=== PATIENT | female | born 1985 | race Caucasian/White ===

== ENCOUNTER 2021-04-20 15:11 | Emergency (ER) | payer MEDICAID ==
[2021-04-20] MEDS ORDERED: Sodium Chloride 0.9% 1,000 ML IV ONE (15:19)
[2021-04-20 15:40] LABS: AMPHETAMINES,URINE NEGATIVE (NEGATIVE); BARBITURATES,URINE NEGATIVE (NEGATIVE); BENZODIAZEPINE,URINE NEGATIVE (NEGATIVE); MDMA (ECSTASY), URINE NEGATIVE (NEGATIVE); METHADONE,URINE NEGATIVE (NEGATIVE); METHAMPHETAMINES,URINE NEGATIVE (NEGATIVE); OPIATES,URINE NEGATIVE (NEGATIVE); OXYCODONE,URINE NEGATIVE (NEGATIVE); PHENCYCLIDINE,URINE NEGATIVE (NEGATIVE); TCA,URINE NEGATIVE (NEGATIVE)
[2021-04-20 15:47] LABS: CHLORIDE,CL 103 mEq/L (98-106); SODIUM,NA 143 mEq/L (136-145)
[2021-04-20] MEDS ORDERED: Magnesium Sulfate/Water 2 GM in Premix Bag 1 BAG IV ONE (15:52)
[2021-04-20] MEDS ORDERED: Potassium Chloride 20 MEQ in Premix Bag 1 BAG IV ONE (15:52)
--- NOTE | 2021-04-20 16:38 | EDM.PDOC ---
ED HPI GENERAL MEDICAL PROBLEM - General Chief Complaint: General Stated Complaint: hands numb Time Seen by Provider: 04/20/21 15:41 Source of Information: Reports: Patient History Limitations: Reports: No Limitations - History of Present Illness INITIAL COMMENTS - FREE TEXT/NARRATIVE: Jeni is a 35 yo female who presents to the ED with concerns of her anxiety, palpitations in her chest, spasms in her hands. States she felt fine this morning and ended up having a rummage sale. States it wasn't till after the rummage sale when the symptoms started. States this has happened to her one other time and she had a lot potassium level. States she was unable to stop flexing her wrists but now is able to move them. Bilateral Hand Pain Score (Numeric/FACES): 5 - Related Data Allergies Allergy/AdvReac Type Severity Reaction Status Date / Time No Known Allergies Allergy Verified 04/20/21 15:14 Home Meds: Home Meds Cyclobenzaprine [Flexeril] 10 mg PO BID PRN 04/20/21 [History] Past Medical History Psychiatric History: Reports: Anxiety - Infectious Disease History Infectious Disease History: Reports: None Social & Family History - Tobacco Use Tobacco Use Status *Q: Current Every Day Tobacco User Years of Tobacco use: 10 Packs/Tins Daily: 0.5 - Caffeine Use Caffeine Use: Reports: Coffee, Soda - Recreational Drug Use Recreational Drug Use: No - Living Situation & Occupation Living situation: Reports: Single Occupation: Employed ED ROS GENERAL - Review of Systems Review Of Systems: See Below Constitutional: Reports: No Symptoms. Denies: Fever, Chills HEENT: Reports: No Symptoms Respiratory: Denies: Shortness of Breath Cardiovascular: Reports: Chest Pain. Denies: Lightheadedness GI/Abdominal: Reports: No Symptoms : Reports: No Symptoms Musculoskeletal: Reports: Muscle Stiffness Skin: Reports: No Symptoms Neurological: Reports: Numbness, Tingling. Denies: Dizziness, Headache, Seizure, Syncope Psychiatric: Reports: Anxiety ED EXAM, GENERAL - Physical Exam Exam: See Below Exam Limited By: No Limitations General Appearance: Alert, Anxious Eye Exam: Bilateral Eye: Normal Inspection Ears: Normal External Exam, Hearing Grossly Normal Nose: Normal Inspection, Normal Mucosa, No Blood Throat/Mouth: Normal Inspection, Normal Lips, Normal Voice, No Airway Compromise Head: Atraumatic, Normocephalic Neck: Normal Inspection, Supple Respiratory/Chest: No Respiratory Distress, Lungs Clear, Normal Breath Sounds, No Accessory Muscle Use Cardiovascular: Regular Rate, Rhythm, No Edema, No Murmur Extremities: Normal Inspection, No Pedal Edema, Normal Capillary Refill Neurological: Alert, Oriented, CN II-XII Intact, Normal Cognition, No Linda r/Sensory Deficits Psychiatric: Anxious Skin Exam: Warm, Dry, Intact, Normal Color, No Rash Course - Vital Signs Last Recorded V/S: Last Vital Signs Temp 98.6 F 04/20/21 18:22 Pulse 93 04/20/21 18:22 Resp 16 04/20/21 18:22 BP 108/59 L 04/20/21 18: Pulse Ox 98 04/20/21 18:22 - Orders/Labs/Meds Labs: Laboratory Tests 04/20/21 04/20/21 04/20/21 Range/Units 15:17 15:17 15:17 WBC 9.9 (4.0-11.0) 10^3/uL RBC 4.01 (4.00-5.50) x10^6/uL Hgb 12.9 (12.0-16.0) g/dL Hct 37.2 (37.0-47.0) % MCV 92.8 (83.0-97.0) fL MCH 32.2 H (27.0-32.0) pg MCHC 34.7 (32.0-36.0) g/dL RDW Coeff of [place] 11.9 (11.0-15.0) % Plt Count 314 (150-400) 10^3/uL Immature Gran % (Auto) 0.2 (0.0-4.9) % Neut % (Auto) 55.4 (41-71) % Lymph % (Auto) 32.8 (24-44) % [place] % (Auto) 9.9 (0-10) % Eos % (Auto) 1.0 (0-6) % Baso % (Auto) 0.7 (0-1) % Neut # (Auto) 5.46 (1.80-8.00) x10^3/uL Lymph # (Auto) 3.24 (0.60-5.00) 10^3/uL [place] # (Auto) 0.98 (0.00-1.50) 10^3/uL Eos # (Auto) 0.10 (0.00-1.50) 10^3/uL Baso # (Auto) 0.07 (0.00-0.50) 10^3/uL Immature Gran # (Auto) 0.02 (0.00-0.49) 10^3/uL Sodium (136-145) mEq/L Potassium (3.5-5.0) mEq/L Chloride (98-106) mEq/L Carbon Dioxide (21-32) mmol/L BUN (7-18) mg/dL Creatinine (0.6-1.0) mg/dL Est Cr Clr Drug Dosing mL/min Estimated GFR (MDRD) (>=60) mL/min Glucose (75-99) mg/dL Calcium (8.4-10.1) mg/dL Magnesium (1.8-2.4) mg/dL Total Bilirubin (0.0-1.0) mg/dL AST (15-37) U/L ALT (12-78) U/L Alkaline Phosphatase (46-116) U/L Creatine Kinase (21-215) U/L Total Protein (6.4-8.2) g/dL Albumin (3.4-5.0) g/dL Urine Color Yellow (YELLOW) Urine Appearance Clear (CLEAR) Urine pH 7.0 (4.5-8.0) Ur Specific [place] 1.025 H (1.003-1.020) Urine Protein Negative (NEGATIVE) mg/dL Urine Glucose (UA) Negative (NEGATIVE) mg/dL Urine Ketones Negative (NEGATIVE) mg/dL Urine Occult Blood Negative (NEGATIVE) Urine Nitrite Negative (NEGATIVE) Urine Bilirubin Negative (NEGATIVE) Urine Urobilinogen 0.2 (0.2-1.0) EU/dL Ur Leukocyte Esterase Trace H (NEGATIVE) Urine RBC Not seen (0-5) /HPF Urine WBC Not seen (0-5) /HPF Urine Opiates Screen Negative (NEGATIVE) Ur Oxycodone Screen Negative (NEGATIVE) Urine Methadone Screen Negative (NEGATIVE) Ur Barbiturates Screen Negative (NEGATIVE) U Tricyclic Antidepress Negative (NEGATIVE) Ur Phencyclidine Scrn Negative (NEGATIVE) Ur Amphetamine Screen Negative (NEGATIVE) U Methamphetamines Scrn Negative (NEGATIVE) Urine MDMA Screen Negative (NEGATIVE) U Benzodiazepines Scrn Negative (NEGATIVE) Urine Cocaine Screen Negative (NEGATIVE) U Marijuana (THC) Screen Negative (NEGATIVE) 04/20/21 Range/Units 15:17 WBC (4.0-11.0) 10^3/uL RBC (4.00-5.50) x10^6/uL Hgb (12.0-16.0) g/dL Hct (37.0-47.0) % MCV (83.0-97.0) fL MCH (27.0-32.0) pg MCHC (32.0-36.0) g/dL RDW Coeff of [place] (11.0-15.0) % Plt Count (150-400) 10^3/uL Immature Gran % (Auto) (0.0-4.9) % Neut % (Auto) (41-71) % Lymph % (Auto) (24-44) % [place] % (Auto) (0-10) % Eos % (Auto) (0-6) % Baso % (Auto) (0-1) % Neut # (Auto) (1.80-8.00) x10^3/uL Lymph # (Auto) (0.60-5.00) 10^3/uL [place] # (Auto) (0.00-1.50) 10^3/uL Eos # (Auto) (0.00-1.50) 10^3/uL Baso # (Auto) (0.00-0.50) 10^3/uL Immature Gran # (Auto) (0.00-0.49) 10^3/uL Sodium 143 (136-145) mEq/L Potassium 3.2 L (3.5-5.0) mEq/L Chloride 103 (98-106) mEq/L Carbon Dioxide 22 (21-32) mmol/L BUN 14 (7-18) mg/dL Creatinine 0.8 (0.6-1.0) mg/dL Est Cr Clr Drug Dosing 102.58 mL/min Estimated GFR (MDRD) > 60 (>=60) mL/min Glucose 121 H (75-99) mg/dL Calcium 9.0 (8.4-10.1) mg/dL Magnesium 1.5 L (1.8-2.4) mg/dL Total Bilirubin 0.4 (0.0-1.0) mg/dL AST 19 (15-37) U/L ALT 28 (12-78) U/L Alkaline Phosphatase 45 L (46-116) U/L Creatine Kinase 85 (21-215) U/L Total Protein 7.8 (6.4-8.2) g/dL Albumin 4.3 (3.4-5.0) g/dL Urine Color (YELLOW) Urine Appearance (CLEAR) Urine pH (4.5-8.0) Ur Specific [place] (1.003-1.020) Urine Protein (NEGATIVE) mg/dL Urine Glucose (UA) (NEGATIVE) mg/dL Urine Ketones (NEGATIVE) mg/dL Urine Occult Blood (NEGATIVE) Urine Nitrite (NEGATIVE) Urine Bilirubin (NEGATIVE) Urine Urobilinogen (0.2-1.0) EU/dL Ur Leukocyte Esterase (NEGATIVE) Urine RBC (0-5) /HPF Urine WBC (0-5) /HPF Urine Opiates Screen (NEGATIVE) Ur Oxycodone Screen (NEGATIVE) Urine Methadone Screen (NEGATIVE) Ur Barbiturates Screen (NEGATIVE) U Tricyclic Antidepress (NEGATIVE) Ur Phencyclidine Scrn (NEGATIVE) Ur Amphetamine Screen (NEGATIVE) U Methamphetamines Scrn (NEGATIVE) Urine MDMA Screen (NEGATIVE) U Benzodiazepines Scrn (NEGATIVE) Urine Cocaine Screen (NEGATIVE) U Marijuana (THC) Screen (NEGATIVE) Meds: Medications Discontinued Medications Generic Name Dose Route Start Last Admin Trade Name Freq PRN Reason Stop Dose Admin Sodium Chloride 1,000 mls @ 250 mls/hr 04/20/21 15:19 04/20/21 15:25 Normal Saline IV 04/20/21 19:18 250 mls/hr .BOLUS ONE Administration Potassium Chloride 20 meq/ 100 mls @ 25 mls/hr 04/20/21 15:52 04/20/21 17:47 Premix IV 04/20/21 19:51 Not Given ONETIME ONE Magnesium Sulfate 2 gm/ Premix 50 mls @ 25 mls/hr 04/20/21 15:52 04/20/21 16:11 IV 04/20/21 17:51 25 mls/hr ONETIME ONE Administration Potassium Chloride 20 meq 04/20/21 17:47 04/20/21 17:52 Potassium Chloride 10 Meq Tab.Er PO 04/20/21 17:48 20 meq ONETIME ONE Administration Potassium Chloride 10 meq 04/20/21 18:30 04/20/21 18:32 Potassium Chloride 10 Meq Tab.Er PO 10 meq DAILY JORGE Administration Departure - Departure Time of Disposition: 18:35 Disposition: Home, Self-Care 01 Clinical Impression: Hypokalemia, Hypomagnesemia, Panic attack - Discharge Information Instructions: Hypomagnesemia, Hypokalemia, Panic Attack, [id number], Managing Anxiety, Adult Referrals: Kevin Mullen PA-C [Primary Care Provider] - Forms: ED Department Discharge Additional Instructions: 1) Recommend taking over the counter magnesium supplementation daily 2) Follow up with primary this week for recheck potassium levels. Will start 10 mEq daily as well, prescription provided. 3) Hand out on anxiety/panic attack provided as well 4) If any concerns at all, recommend returning for reevaluation. Sepsis Event Note (ED) - Focused Exam Vital Signs: Vital Signs Temp Pulse Resp BP Pulse Ox 04/20/21 18:22 98.6 F 93 16 108/59 L 98 04/20/21 15:12 97.6 F 124 H 20 161/101 H 100 - Problem List & Annotations (1) Hypokalemia SNOMED Code(s): 89135139 Code(s): E87.6 - HYPOKALEMIA Status: Acute (2) Hypomagnesemia SNOMED Code(s): 343931863 Code(s): E83.42 - HYPOMAGNESEMIA Status: Acute (3) Panic attack SNOMED Code(s): 117822201 Code(s): F41.0 - PANIC DISORDER [EPISODIC PAROXYSMAL ANXIETY] Status: Acute - Problem List Review Problem List Initiated/Reviewed/Updated: Yes - Assessment/Plan Plan: Jeni taken to the floor for IV fluids, potassium & magnesium replacement. Will plan for discharge if feeling better and asymptomatic thereafter. Discussed findings with Jeni and she is in agreement.
[2021-04-20] MEDS ORDERED: Potassium Chloride 10 MEQ Tab.ER PO ONE (17:47)
[2021-04-20 18:22] VITALS: BP 108/59; PULSE 93
[2021-04-20] MEDS ORDERED: Potassium Chloride 10 MEQ Tab.ER PO SCH (18:30)
== END 2021-04-20 18:36 | disposition home or self-care (01) ==
LOC: CC.ED 15:11
DX: F41.0 Panic disorder [episodic paroxysmal anxiety] (principal); E87.6 Hypokalemia; E83.42 Hypomagnesemia; Z72.0 Tobacco use
CPT/HCPCS: 36415; 80053; 80305-QW; 81001; 82550; 83735; 85025; 93005; 96365; 96366; 99285-25; A9270-GY; J3475; J7030

== ENCOUNTER 2022-01-25 02:00 | Emergency (ER) | payer MEDICAID ==
[2022-01-25 02:30] VITALS: BP 122/78; PULSE 119
[2022-01-25] MEDS: Take Home: Acetaminophen/HYDROcodone 325-5 MG, 2 Tab Pack PO ONE (03:51)
== END 2022-01-25 04:00 | disposition home or self-care (01) ==
LOC: CC.ED 02:00
DX: S82.831A Other fracture of upper and lower end of right fibula, initial encounter for closed fracture (principal); F10.129 Alcohol abuse with intoxication, unspecified; Z72.0 Tobacco use; W17.81XA Fall down embankment (hill), initial encounter
CPT/HCPCS: 73610-LT; 73610-RT; 99283; A9270-GY

== ENCOUNTER 2022-05-13 20:00 | Emergency (ER) | payer MEDICAID ==
[2022-05-13] MEDS ORDERED: Ondansetron 4 MG/2 ML SDV IVPUSH ONE (20:25)
[2022-05-13] MEDS ORDERED: HYDROmorphone 1 MG/ML Syringe IVPUSH ONE (20:30)
[2022-05-13] MEDS ORDERED: Sodium Chloride 0.9% 1,000 ML IV ONE (20:30)
[2022-05-13] MEDS ORDERED: Take Home: Ondansetron 4 MG Tab.DIS, 2 Tab Pack PO ONE (21:50)
[2022-05-13] MEDS ORDERED: Take Home: Acetaminophen/HYDROcodone 325-5 MG, 2 Tab Pack PO ONE (21:50)
[2022-06-06 11:18] LABS: CHLORIDE,CL 102 mEq/L (98-106); ESTIMATED GFR 115 mL/min (>=60); SODIUM,NA 139 mEq/L (136-145)
== END 2022-05-13 21:50 | disposition home or self-care (01) ==
LOC: CC.ED 20:00
DX: R10.11 Right upper quadrant pain (principal); R10.13 Epigastric pain; Z20.822 Contact with and (suspected) exposure to COVID-19
CPT/HCPCS: 36415; 80053; 82150; 83690; 85025; 96361; 96374; 96375; 99283-25; A9270-GY; J1170; J2405; J7030; U0002